=== PATIENT | female | born 1940 | race Caucasian/White ===

== ENCOUNTER 2016-11-05 15:58 | Outpatient (CLI) | payer MEDICARE | END 2016-11-05 15:59 | disposition home or self-care (01) | LOC: HPCALD 15:58 | PROVIDERS: ATTEND Family Medicine | DX: N39.0 Urinary tract infection, site not specified (principal) | CPT/HCPCS: 87086 ==

== ENCOUNTER 2018-01-10 16:43 | Outpatient (CLI) | payer MEDICARE ==
--- NOTE | 2018-01-10 19:15 | RAD ---
CHEST 2 VIEWS: Date: 01/10/18 Comparison made with the 10/18/10 study. Heart is unchanged in size. The aorta is mildly dilated, but the same as before. There is no vascular congestion, edema, or pleural effusion. The lungs are clear. Some mild degenerative changes are seen in the lower thoracic spine. IMPRESSION: No acute findings. POS: HOME
== END 2018-01-10 16:44 | disposition home or self-care (01) ==
LOC: BURRAD 16:43
PROVIDERS: ATTEND Family Medicine
DX: R06.2 Wheezing (principal)
CPT/HCPCS: 71046

== ENCOUNTER 2019-04-18 16:01 | Outpatient (CLI) | payer MEDICARE ==
--- NOTE | 2019-04-18 20:22 | RAD ---
CHEST TWO VIEWS: 04/18/19 Comparison is made with a 01/10/18 study. The heart is normal in size. The lungs are clear. No infiltr ate or effusion was seen. No vertebral compressions were apparent on the lateral view. The paraspinou s regions were unremarkable. Some faint calcification is seen in the aortic arch. IMPRESSION: No acute thoracic findings. POS: HOME
== END 2019-04-18 16:02 | disposition home or self-care (01) ==
LOC: BURRAD 16:01
PROVIDERS: ATTEND Physician Assistant
DX: M54.9 Dorsalgia, unspecified (principal)
CPT/HCPCS: 71046

== ENCOUNTER 2020-10-28 12:10 | Outpatient (CLI) | payer MEDICARE | END 2020-10-28 12:11 | disposition home or self-care (01) | LOC: BURRAD 12:10 | PROVIDERS: ATTEND Family Medicine | DX: S83.412A Sprain of medial collateral ligament of left knee, initial encounter (principal); M79.89 Other specified soft tissue disorders ==

== ENCOUNTER 2021-02-03 06:09 | Emergency (ER) | payer MEDICARE ==
[2021-02-03 06:34] LABS: Bilirubin Negative (Negative); Blood, Urine Negative (Negative); Clarity Clear (Clear); Glucose, Urine (Dipstick) Negative (Negative); Ketone, Urine Negative (Negative); Leukocyte Negative (Negative); Nitrite Negative (Negative); Protein, Urine (Dipstick) Negative (Neg-Trace); Urobilinogen 0.2 mg/dL (Less than 2)
== END 2021-02-03 07:28 | disposition home or self-care (01) ==
LOC: BURERS 06:09
DX: M54.50 Low back pain, unspecified (principal); Z79.899 Other long term (current) drug therapy
CPT/HCPCS: 81003; 99283

== ENCOUNTER 2021-12-28 14:30 | Emergency (ER) | payer OTHER, MEDICARE ==
[2021-12-28] MEDS ORDERED: Acetaminophen 500 MG TAB ONE (14:48)
== END 2021-12-28 15:43 | disposition home or self-care (01) ==
LOC: BURERS 14:30
DX: S01.81XA Laceration without foreign body of other part of head, initial encounter (principal); W01.0XXA Fall on same level from slipping, tripping and stumbling without subsequent striking against object, initial encounter
CPT/HCPCS: 12001; 70450; 72125

== ENCOUNTER 2023-09-15 11:04 | Outpatient (CLI) | payer MEDICARE | END 2023-09-15 11:05 | disposition home or self-care (01) | LOC: BURRAD 11:04 | PROVIDERS: ATTEND Family Medicine | DX: R05.1 Acute cough (principal); R91.8 Other nonspecific abnormal finding of lung field | CPT/HCPCS: 71046 ==